=== PATIENT | female | born 1990 | race Caucasian/White ===

== ENCOUNTER → 2019-07-16 | Outpatient (CLI) | payer BC ==
--- NOTE | 2019-07-16 14:08 | Diagnostic Imaging Report ---
INDICATION: Uveitis and iritis. PA and lateral chest obtained at 11:47 a.m. Heart and mediastinal silhouette are normal in appearance. The lungs are clear. There is no pneumothorax or pleural fluid. There is a normal variant of the azygos lobe in the right upper lobe. IMPRESSION: No acute process in the chest. Dictated by: Dictated on workstation # [id number]
== END ==
LOC: RAD 11:24
PROVIDERS: ATTEND Pediatrics
DX: H20.9 Unspecified iridocyclitis (principal)
CPT/HCPCS: 71046